=== PATIENT | female | born 1990 | race African-American/Black ===

== ENCOUNTER 2020-12-25 15:39 | Emergency (ER) | payer OTHER ==
[~2020-12-25] VITALS: Ht 165.1 cm; Wt 68.5 kg
[~2020-12-25 15:39] MED LIST: PREN-385 PO
--- NOTE | 2020-12-25 15:46 | NUR ---
PT TAKEN TO BED 08 VIA W/C.
[2020-12-25 15:52] VITALS: BP 127/82
--- NOTE | 2020-12-25 15:58 | NUR ---
MONA Fischer at pt bedside for further evaluation.
[2020-12-25] MEDS ORDERED: predniSONE 20 MG TAB PO ONE (16:00)
[2020-12-25] MEDS ORDERED: ALBUTEROL SULFATE/IPRATROPIU 3 ML SOL IH ONE (16:00)
--- NOTE | 2020-12-25 16:00 | NUR ---
30 Y/O FEMALE C/O SOB X2DAYS. PT STATES SHE USUALLY USES ALBUTEROL INHALER BUT HAS NOT NEEDED IT IN A LONG TIME, SOB HAS BECAME WORSE IN THE LAST 2 DAYS. LABORED BREATHING NOTED SPEAKING IN 3-4 WORDS SENTENCES TO CATCH BREATH. LABORED BREATHING NOTED SPO2 98% ON RA.LUNGS AUSCULTATED BILATERAL WHEEZES INSPIRATORY AND EXPIRATORY PHASE. DENIES COUGH, DENIES N/V, DENIES FEVER/CHILLS. PMH: ASTHMA NKA
[2020-12-25] MEDS ORDERED: ALBU0.0912 IH (16:09)
[2020-12-25] MEDS ORDERED: PRED20TA5 PO (16:09)
--- NOTE | 2020-12-25 16:09 | NUR ---
RT at pt bedside for breathing TX.
[2020-12-25] MEDS ORDERED: NAPROXEN 500 MG TAB PO ONE ×2 (17:00→21:00)
[2020-12-25 17:21] VITALS: BP 118/82
--- NOTE | 2020-12-25 17:22 | NUR ---
Patient discharged with v/s stable. Written and verbal after care instructions given and explained. Patient alert, oriented and verbalized understanding of instructions. Ambulatory with steady gait. All questions addressed prior to discharge. ID band removed. Patient advised to follow up with PMD. Rx of ALBUTEROL 2 PUFF Q4-6H PRN SOB, AND PREDNISONE 20MG PO DAILY given. Patient educated on indication of medication including possible reaction and side effects. Opportunity to ask questions provided and answered.
== END 2020-12-25 17:22 | disposition home or self-care (01) ==
LOC: MED 15:39
DX: J45.901 Unspecified asthma with (acute) exacerbation (principal)
CPT/HCPCS: 94640; 99283; J7512

== ENCOUNTER 2021-05-07 11:49 | Emergency (ER) | payer OTHER ==
[~2021-05-07] VITALS: Ht 165.1 cm; Wt 86.2 kg
[~2021-05-07 11:49] MED LIST changes: +ALBU0.0912 IH; +PRED20TA5 PO
[2021-05-07 12:03] VITALS: BP 144/72
[2021-05-07] MEDS ORDERED: METR500T1 PO (12:27)
[2021-05-07] MEDS ORDERED: FLUC150T PO (12:27)
[2021-05-07 12:39] VITALS: BP 144/72
--- NOTE | 2021-05-07 12:39 | NUR ---
Patient discharged with v/s stable. Written and verbal after care instructions given and explained. Patient alert, oriented and verbalized understanding of instructions. Ambulatory with steady gait. All questions addressed prior to discharge. ID band removed. Patient advised to follow up with PMD. Rx of FLUCONZAOLE, METRONIDAZOLE given. Patient educated on indication of medication including possible reaction and side effects. Opportunity to ask questions provided and answered.
== END 2021-05-07 12:39 | disposition home or self-care (01) ==
LOC: MED 11:49
DX: N76.0 Acute vaginitis (principal); J45.909 Unspecified asthma, uncomplicated; Z79.899 Other long term (current) drug therapy
CPT/HCPCS: 81002; 81025; 99283